=== PATIENT | female | born 1995 | race Caucasian/White ===

== ENCOUNTER → 2023-10-13 15:57 | Outpatient (CLI) | payer OTHER, SELFPAY ==
[2023-10-13 17:11] LABS: Hematocrit 38.9 % (36-46); Hemoglobin 13.2 g/dL (12.0-16.0); Mean Corpuscular HGB Conc 33.9 % (30-36); Mean Corpuscular Hemoglobin 29.4 PG (26-34); Mean Corpuscular Volume 86.7 fL (80-100); Platelet Count 198 X10^3/uL (150-400); Red Blood Cell Count 4.49 X10^6/uL (4.0-5.2); Red Cell Distribution Width 13.4 % (11.6-14.8); White Blood Cell Count 5.6 X10^3/uL (4.5-11.0)
[2023-10-13 17:42] LABS: HEMOLYSIS < 15 (0-50); Iron 102 ug/dL (37-170)
[2023-10-13 17:46] LABS: Neutrophils Absolute Manual 3248 /uL (3000-5900); Total Cells Counted 100
[2023-10-13 17:47] LABS: RBC Morphology Normal Morphology
[2023-10-13 17:54] LABS: Percent Iron Saturation 39 % (15-50); Total Iron Binding Capacity 262 ug/dL (265-497); Transferrin 236 mg/dL (206-381)
[2023-10-13 18:14] LABS: TSH w/ Reflex to FT4 2.52 uIU/mL (0.47-4.68)
[2023-10-13 18:23] LABS: Ferritin 23 ng/mL (6-137)
== END ==
PROVIDERS: PCP Family Medicine; Referring Provider Family Medicine; Visit Provider Family Medicine
DX: L65.9 Nonscarring hair loss, unspecified (principal); D64.9 Anemia, unspecified
CPT/HCPCS: 36415; 82728; 83540; 83550; 84443; 85025

== ENCOUNTER → 2024-04-18 16:38 | Outpatient (CLI) | payer OTHER, SELFPAY ==
--- NOTE | 2024-04-18 16:39 | DI.US.S_ITS ---
PROCEDURE: US OB <= 14 WEEKS FETUS INDICATIONS: DATING AND VIABILITY-EARLY OUTSIDE/PRIOR DATING DATA: Last menstrual period (LMP): Unknown LMP-based estimated date of delivery (BASILIA): N/A First dating scan (date and location): 04/18/2024 Estimated date of delivery (BASILIA) from first dating scan: 11/26/2024 TECHNIQUE: Real-time scanning was performed of the fetus and maternal pelvic organs, with image documentation. COMPARISON: None. FINDINGS: Embryo: Intrauterine gestational sac is seen with yolk sac and pole. [place]-rump length is 1.8 cm compatible with an estimated gestational age of 8 weeks 2 days. Heart rate: 173 beats per minute. Maternal organs: Ovaries are unremarkable. No significant perigestational sac hemorrhage. IMPRESSION: Single live intrauterine with estimated gestational age of 8 weeks 2 days corresponding to an ultrasound BASILIA of 11/26/2024. Approved by: Owen Simms M.D. on 04/19/2024 at 11:25
== END ==
LOC: US 16:39
PROVIDERS: PCP Family Medicine; Referring Provider Nurse Practitioner Obstetrics & Gynecology; Visit Provider Nurse Practitioner Obstetrics & Gynecology
DX: Z34.91 Encounter for supervision of normal pregnancy, unspecified, first trimester (principal); Z3A.08 8 weeks gestation of pregnancy
CPT/HCPCS: 76801

== ENCOUNTER → 2024-07-10 15:25 | Outpatient (CLI) | payer OTHER, SELFPAY ==
--- NOTE | 2024-07-10 15:27 | DI.US.S_ITS ---
PROCEDURE: US OB >= 14 WEEKS FETUS INDICATIONS: 20 week ultrasound OUTSIDE/PRIOR DATING DATA: The calculations are made using the working BASILIA of 11/26/2024. TECHNIQUE: Real-time scanning was performed of the fetus, with image documentation and biometric measurements. Endovaginal scanning: Not performed COMPARISON: None. FINDINGS: General: A single living intrauterine gestation is present. Presentation: Breech. Placenta: Placental position is posterior , without previa. Amniotic fluid index: 16.7 cm, normal range is 5-24 cm. Single deepest vertical pocket is 5.0 cm. heart rate: 152 beats per minute. Maternal cervical canal: 4.3 cm long. Normal lower limit is 2.5 cm. biometrics: Biparietal diameter: 4.9 centimeters, 20 weeks 5 days Head circumference: 17.6 centimeters, 20 weeks Abdominal circumference: 14.4 centimeters, 19 weeks 5 days Femur length: 3.2 centimeters, 19 weeks 6 days Clinically estimated gestational age: 20 weeks 1 day Composite gestational age from present scan: 20 weeks 1 day Estimated weight and percentile: 315 grams, 28th percentile Anatomic survey: Neuro: Ventricles are non-dilated at less than 10 mm. Cisterna magna is normal at 3-11 mm. Cerebellum is normal in size and morphology. Nuchal skin fold: Normal at less than 6 mm between 14-21 weeks gestational age. Face: Nose and lips are normal. Facial profile is incompletely visualized. Spine: No evidence for spina bifida. Heart: 4-chambered heart is present, with normal ventricular outflow tracts. Diaphragm: Diaphragm is intact. Stomach: Left-sided stomach is present. Kidneys: No hydronephrosis. Normal is less than 5 mm in 2nd trimester, less than 7 mm in 3rd trimester. Cord: 3-vessel cord has orthotopic insertion. Bladder: Normal in size. Extremities: All 4 extremities identified. IMPRESSION: Single living intrauterine at 20 weeks 1 day, BASILIA of 11/26/2024. Estimated weight of 315 grams, 28th percentile. Facial profile is incompletely visualized due to lie. Normal anatomy survey otherwise. We strive to produce accurate, complete, and clear reports of imaging services. To assist us in improving patient care, this report was composed using standard report templates and voice recognition software. Therefore, it may contain abnormal punctuation, insertions and/or omissions. Occasional wrong-word or sound-alike substitutions may occur. Though we review the report and make efforts to correct it, we do recommend that the report be read carefully in proper context to recognize any text inaccuracies. Dictated by: Jose Antonio Hopkins M.D. on 07/11/2024 at 8:59 Approved by: Jose Antonio Hopkins M.D. on 07/11/2024 at 9:01
== END ==
LOC: US 15:26
PROVIDERS: PCP Family Medicine; Referring Provider Nurse Practitioner Obstetrics & Gynecology; Visit Provider Nurse Practitioner Obstetrics & Gynecology
DX: Z36.89 Encounter for other specified antenatal screening (principal); Z3A.20 20 weeks gestation of pregnancy
CPT/HCPCS: 76811